=== PATIENT | male | born 1995 | race Caucasian/White ===

== ENCOUNTER 2017-06-25 09:53 | Emergency (ER) | payer SELFPAY ==
[~2017-06-25] VITALS: Ht 167.6 cm; Wt 57.6 kg
[2017-06-25] MEDS ORDERED: KETOROLAC 30 MG/1 ML IVPush ONE (10:30)
[2017-06-25] MEDS ORDERED: SODIUM CHLORIDE FLUSH 10ML SYR IVF ONE (10:30)
[2017-06-25] MEDS ORDERED: SODIUM CHLORIDE 0.9% 1,000ML IVBOLUS ONE (10:30)
[2017-06-25] MEDS ORDERED: METOCLOPRAMIDE 5 MG/ML, 2ML IVPush ONE (10:30)
[2017-06-25] MEDS ORDERED: DIPHENHYDRAMINE 50 MG/ML, 1ML IVPush ONE (10:30)
[2017-06-25] MEDS ORDERED: KETOROLAC 30 MG/1 ML ONE (10:36)
[2017-06-25] MEDS ORDERED: METOCLOPRAMIDE 5 MG/ML, 2ML ONE (10:37)
[2017-06-25] MEDS ORDERED: DIPHENHYDRAMINE 50 MG/ML, 1ML ONE (10:37)
[2017-06-25 11:24] VITALS: BP 107/69
== END 2017-06-25 11:49 | disposition home or self-care (01) ==
LOC: ED 11:43
DX: G43.009 Migraine without aura, not intractable, without status migrainosus (principal); M41.9 Scoliosis, unspecified; Z59.0 Homelessness
CPT/HCPCS: 96374; 96375; 99284; J1200; J1885; J2765; J7030

== ENCOUNTER 2017-07-18 15:44 | Inpatient (IN) | payer MEDICAID, OTHER ==
[~2017-07-18] VITALS: Ht 167.6 cm; Wt 62.3 kg
[2017-07-18] MEDS ORDERED: SODIUM CHLORIDE FLUSH 10ML SYR IVF ONE (16:00)
[2017-07-18] MEDS ORDERED: SODIUM CHLORIDE 0.9% 1,000ML IVBOLUS ONE (16:00)
[2017-07-18] MEDS ORDERED: AZITHROMYCIN 500 MG in SODIUM CHLORIDE 0.9% 250 ML IVPB ONE (16:30)
[2017-07-18] MEDS ORDERED: CEFTRIAXONE PMX 1GM/50ML 50 ML IVPB ONE (16:30)
[2017-07-18] MEDS ORDERED: CEFTRIAXONE PMX 1GM/50ML 50 ML ONE (16:47)
[2017-07-18 17:00] LABS: HEMATOCRIT 38.2 % (39.2-51.8); HEMOGLOBIN 12.9 g/dL (13.7-18.0); WHITE BLOOD COUNT 26.5 x10^3/uL (3.4-10)
[2017-07-18 17:14] LABS: BLOOD UREA NITROGEN 29 mg/dL (7-18)
[2017-07-18] MEDS ORDERED: SODIUM CHLORIDE FLUSH 10ML SYR IVF PRN (17:30)
[2017-07-18 17:39] LABS: DIFF TOTAL CELLS COUNTED 100 CELL DIFF
[2017-07-18 17:41] LABS: VERIFY COUNTS? YES
[2017-07-18 17:55] LABS: IS PT STATUS REG ER OR PRE ER? YES
[2017-07-18] MEDS ORDERED: POLYETHYLENE GLYCOL 17 GM PACKET PO PRN (18:00)
[2017-07-18] MEDS ORDERED: ONDANSETRON 2MG/ML, 2ML IVPush PRN (18:00)
[2017-07-18] MEDS ORDERED: AZITHROMYCIN 500 MG in SODIUM CHLORIDE 0.9% 250 ML IV SCH (18:00)
[2017-07-18] MEDS ORDERED: GUAIFENESIN/DM 200-20MG, 10ML UDC PO PRN (18:00)
[2017-07-18] MEDS ORDERED: ACETAMINOPHEN 325 MG TABLET PO PRN (18:00)
[2017-07-18] MEDS ORDERED: BISACODYL 10 MG SUPP PR PRN (18:00)
[2017-07-18] MEDS ORDERED: CEFTRIAXONE PMX 1GM/50ML 50 ML IV SCH (18:00)
[2017-07-18] MEDS ORDERED: VANCOMYCIN PER PHARMACY MC PRN (18:00)
[2017-07-18] MEDS ORDERED: PHARMACOKINETIC CONSULTATION MC ONE (18:30)
[2017-07-18] MEDS ORDERED: PHARMACOKINETIC MONITORING MC PRN (18:30)
[2017-07-18 18:37] LABS: HIV 1&2 ANTIBODY SCREEN Nonreactive (Nonreactive); HIV-1 p24 ANTIGEN Nonreactive (Nonreactive)
[2017-07-18] MEDS: NICOTINE 7 MG/24 HR PATCH.TD24 TD SCH (19:44)
[2017-07-18] MEDS: HEPARIN 5,000 UNITS/ML, 1ML SQ SCH (19:44)
[2017-07-18] MEDS: VANCOMYCIN PMX 1GM/200ML 200 ML IV SCH (19:44)
[2017-07-18] MEDS: SODIUM CHLORIDE 0.9% 1,000 ML IV SCH (19:45)
[2017-07-18 20:10] LABS: DAU SCREEN DISCLAIMER
[2017-07-18 20:50] VITALS: BP 109/75
[2017-07-18] MEDS ORDERED: ALBUTEROL/IPRATROPIUM 2.5MG/0.5MG, 3 ML NPPB PRN (22:00)
[2017-07-19 00:23] VITALS: BP 91/50
[2017-07-19] MEDS: SODIUM CHLORIDE 0.9% 1,000 ML IV SCH ×4 (00:32→23:44)
[2017-07-19 00:34] VITALS: BP 97/46
[2017-07-19] MEDS ORDERED: SODIUM CHLORIDE 0.9% 1,000ML IVBOLUS ONE ×2 (01:00→04:30)
[2017-07-19 02:01] VITALS: BP 91/38
[2017-07-19] MEDS ORDERED: SODIUM CHLORIDE 0.9% 1,000 ML IVBOLUS PRN ×2 (02:27→03:00)
[2017-07-19] MEDS ORDERED: SODIUM CHLORIDE 0.9%, 500ML IVBOLUS ONE (02:30)
[2017-07-19] MEDS: PIPERACILLIN/TAZO/PMX 3.375GM 50 ML IV SCH ×4 (03:07→20:48)
[2017-07-19] MEDS: NOREPINEPHRINE 4 MG in SODIUM CHLORIDE 0.9% 246 ML IV PRN ×2 (03:10→17:39)
[2017-07-19] MEDS: HEPARIN 5,000 UNITS/ML, 1ML SQ SCH ×3 (03:23→17:38)
[2017-07-19] MEDS ORDERED: morphine SULFATE 10 MG/ML, 1ML IVPush PRN (04:00)
[2017-07-19 05:01] LABS: HEMATOCRIT 35.2 % (39.2-51.8); HEMOGLOBIN 11.8 g/dL (13.7-18.0); WHITE BLOOD COUNT 24.5 x10^3/uL (3.4-10)
[2017-07-19 05:10] LABS: ASPARTATE AMINO TRANSFERASE 8 U/L (15-37); BLOOD UREA NITROGEN 19 mg/dL (7-18)
[2017-07-19 05:56] LABS: DIFF TOTAL CELLS COUNTED 100 CELL DIFF
[2017-07-19 05:58] LABS: VERIFY COUNTS? YES
[2017-07-19] MEDS: VANCOMYCIN PMX 1GM/200ML 200 ML IV SCH (07:58)
[2017-07-19] MEDS: SENNA/DOCUSATE TABLET PO SCH (09:00)
[2017-07-19] MEDS ORDERED: CEFTRIAXONE PMX 2GM/50ML 50 ML IV SCH (17:00)
[2017-07-19] MEDS: NICOTINE 7 MG/24 HR PATCH.TD24 TD SCH (17:38)
[2017-07-19] MEDS: VANCOMYCIN 1,200 MG in SODIUM CHLORIDE 0.9% 250 ML IV SCH (17:39)
[2017-07-20] MEDS: HEPARIN 5,000 UNITS/ML, 1ML SQ SCH ×3 (02:00→17:27)
[2017-07-20] MEDS: PIPERACILLIN/TAZO/PMX 3.375GM 50 ML IV SCH ×2 (03:00→09:24)
[2017-07-20 04:46] LABS: BLOOD UREA NITROGEN 9 mg/dL (7-18)
[2017-07-20 04:48] LABS: HEMATOCRIT 33.7 % (39.2-51.8); HEMOGLOBIN 11.3 g/dL (13.7-18.0); WHITE BLOOD COUNT 14.2 x10^3/uL (3.4-10)
[2017-07-20 04:49] LABS: ASPARTATE AMINO TRANSFERASE 16 U/L (15-37)
[2017-07-20] MEDS: VANCOMYCIN 1,200 MG in SODIUM CHLORIDE 0.9% 250 ML IV SCH (06:06)
[2017-07-20] MEDS: SODIUM CHLORIDE 0.9% 1,000 ML IV SCH ×2 (06:07→22:09)
[2017-07-20] MEDS: POTASSIUM CHLORIDE 20 MEQ TAB.ER.PRT PO SCH ×2 (09:24→17:27)
[2017-07-20] MEDS: SENNA/DOCUSATE TABLET PO SCH (09:24)
[2017-07-20] MEDS ORDERED: SODIUM PHOSPHATE 20 MMOL in SODIUM CHLORIDE 0.9% 500 ML IV ONE (11:00)
[2017-07-20] MEDS ORDERED: OXYcodone IR 5MG TABLET PO PRN (11:00)
[2017-07-20] MEDS ORDERED: MAGNESIUM SULFATE PMX 2GM/50ML 50 ML IV ONE (11:00)
[2017-07-20] MEDS: CEFTRIAXONE PMX 1GM/50ML 50 ML IV SCH ×2 (12:17→22:08)
[2017-07-20] MEDS: NICOTINE 7 MG/24 HR PATCH.TD24 TD SCH (17:29)
[2017-07-20 18:45] VITALS: BP 99/62
[2017-07-21] MEDS: HEPARIN 5,000 UNITS/ML, 1ML SQ SCH ×2 (01:09→10:00)
[2017-07-21] MEDS: SODIUM CHLORIDE 0.9% 1,000 ML IV SCH (04:40)
[2017-07-21 08:00] VITALS: BP 119/67
[2017-07-21] MEDS ORDERED: MAGNESIUM SULFATE PMX 2GM/50ML 50 ML IV ONE (08:30)
[2017-07-21] MEDS ORDERED: SODIUM PHOSPHATE 4 MEQ/ML IV SCH (08:30)
[2017-07-21] MEDS ORDERED: POTASSIUM CHLORIDE 20 MEQ TAB.ER.PRT PO ONE (08:30)
[2017-07-21] MEDS: SENNA/DOCUSATE TABLET PO SCH (09:00)
[2017-07-21] MEDS ORDERED: SODIUM PHOSPHATE 30 MMOL in SODIUM CHLORIDE 0.9% 500 ML IV ONE (09:30)
[2017-07-21] MEDS: CEFTRIAXONE PMX 1GM/50ML 50 ML IV SCH (12:11)
[2017-07-21] MEDS ORDERED: SODIUM CHLORIDE 0.9% 1,000 ML IV SCH (17:46)
[2017-07-22] MEDS ORDERED: SENNA/DOCUSATE TABLET PO SCH (09:00)
== END 2017-07-21 13:40 | disposition left against medical advice (07) | DRG 871 ==
LOC: ED 17:24 → EDIP 17:25 → ED 17:43 → 3NW 18:09 → CCU 07-19 02:39 → 3NE 07-20 17:48
PROVIDERS: ADMIT Hospitalist; ATTEND Hospitalist
PROC: 02H633Z Insertion of Infusion Device into Right Atrium, Percutaneous Approach (ICD-10-PCS; principal; 2017-07-19)
DX: A41.9 Sepsis, unspecified organism (principal); E43 Unspecified severe protein-calorie malnutrition; J96.00 Acute respiratory failure, unspecified whether with hypoxia or hypercapnia; J15.4 Pneumonia due to other streptococci; E87.1 Hypo-osmolality and hyponatremia; D64.9 Anemia, unspecified; B95.3 Streptococcus pneumoniae as the cause of diseases classified elsewhere; F12.90 Cannabis use, unspecified, uncomplicated; F15.10 Other stimulant abuse, uncomplicated; F17.210 Nicotine dependence, cigarettes, uncomplicated; J45.909 Unspecified asthma, uncomplicated; M41.9 Scoliosis, unspecified; Z59.0 Homelessness; Z68.22 Body mass index [BMI] 22.0-22.9, adult; Z53.21 Procedure and treatment not carried out due to patient leaving prior to being seen by health care provider
CPT/HCPCS: 36415; 71010; 80048; 80053; 80202; 80307; 82040; 82962; 83605; 83735; 84100; 84145; 84484; 85025; 85610; 85730; 86703; 87040; 87070; 87077; 87081; 87147; 87181; 87205; 87899; 93005; 93306; 96361; 96365; J0456; J0696; J1644; J2543; J3370; G0435; G0479; J2270; J3475; J7030; J7040; J7050